=== PATIENT | male | born 1990 | race Hispanic/Latino ===

== ENCOUNTER 2024-08-24 23:53 | Inpatient (IN) | payer SELFPAY ==
[~2024-08-24] VITALS: Ht 175.3 cm; Wt 79.6 kg
[2024-08-25] VITALS (7 sets, daily range): BP systolic 122–150; BP diastolic 65–92; PULSE 69–80; RESP 15–20; TEMP 97.6–98.4; O2SAT 96–98
[2024-08-25 00:42] LABS: APPEARANCE,URINE CLOUDY (CLEAR); BILIRUBIN,URINE NEGATIVE (NEGATIVE); COLOR,URINE YELLOW (YELLOW); GLUCOSE, URINE (UA) NEGATIVE (NEGATIVE); KETONES,URINE NEGATIVE (NEGATIVE); LEUKOCYTE ESTERASE ,URINE NEGATIVE Leu/uL (NEGATIVE); NITRATE,URINE NEGATIVE (NEGATIVE); OCCULT BLOOD,URINE MODERATE (NEGATIVE); PH,URINE 6.5 (5.0-8.0); PROTEIN,URINE 600 mg/dL (NEGATIVE); UROBILINOGEN,URINE 0.2 mg/dL (0.2-1.0)
[2024-08-25 00:44] LABS: ADD UA MICROSCOPIC YES
[2024-08-25 00:46] LABS: BACTERIA,URINE FEW /HPF (None Seen); MUCUS,URINE RARE LPF (None Seen)
[2024-08-25 00:57] LABS: BASOPHILS # (AUTO) 0.09 K/uL (0.00-0.20); EOSINOPHILS # (AUTO) 0.35 K/uL (0.00-0.70); EOSINOPHILS % (AUTO) 3.7 % (0.0-8.0); HEMATOCRIT 41.1 % (42-54); IMMATURE GRANULOCYTE ABSOLUTE 0.04 K/uL (0-1); LYMPHOCYTES # (AUTO) 2.3 K/uL (1.0-4.8); LYMPHOCYTES % (AUTO) 24.8 % (21.0-51.0); MEAN CORPUSCULAR HEMOGLOBIN 30.7 pg (27.0-33.0); MEAN CORPUSCULAR HGB CONC 36.3 g/dL (32.0-36.0); MEAN CORPUSCULAR VOLUME 84.6 fL (79-99); MONOCYTES # (AUTO) 0.7 K/uL (0.1-1.0); MONOCYTES % (AUTO) 7.9 % (3.0-13.0); NEUTROPHILS # (AUTO) 5.8 K/uL (1.8-7.7); NEUTROPHILS % (AUTO) 62.2 % (40.0-77.0); PLATELET COUNT (AUTO) 305 K/uL (130-400); RED BLOOD CELL COUNT(AUTO) 4.86 MIL/uL (4.50-6.20); RED CELL DISTRIBUTION WIDTH 12.1 % (11.0-15.5); WHITE BLOOD COUNT (AUTO) 9.4 K/uL (4.8-10.8)
[2024-08-25 01:06] LABS: INR <= 0.93 (0.85-1.15); PROTHROMBIN TIME 9.9 SEC (9.6-11.6)
[2024-08-25 01:07] LABS: PARTIAL THROMBOPLASTIN TIME 26.3 SEC (26.3-35.5)
[2024-08-25 01:08] LABS: CARBON DIOXIDE 33 mmol/L (21-32); CHLORIDE 108 mmol/L (101-111); CREATININE 1.1 mg/dL (0.5-1.3); GLOMERULAR FILTR. RATE CALC 90 mL/min (>90); GLUCOSE,RANDOM 97 mg/dL (70-105); POTASSIUM 3.7 mmol/L (3.5-5.1); SODIUM SERUM 142 mmol/L (136-145); UREA NITROGEN, BLOOD 19 mg/dL (7-18)
[2024-08-25 01:18] LABS: ALANINE AMINOTRANSFERASE 27 U/L (12-78); ALBUMIN 1.6 g/dL (3.5-5.0); ASPARTATE AMINOTRANSFERASE 22 U/L (10-37); BILIRUBIN,DIRECT 0.1 mg/dL (0.0-0.3); BILIRUBIN,TOTAL 0.2 mg/dL (0.2-1.0); CREATINE KINASE, TOTAL 299 U/L (21-232); TOTAL PROTEIN, SERUM 4.3 g/dL (6.0-8.3)
--- NOTE | 2024-08-25 01:34 | ERN ---
General Chief Complaint: Lower Extremity Pain/Injury Stated Complaint: SWELLING TO BILATERAL LEGS AND WAIST Time Seen by MD: 23:55 History of Present Illness Initial Comments 34-year-old male who presents for swelling for the last 2-3 weeks. He reports pedal edema pitting but has been rising. It is now up to his testicles and abdomen. He does report some dyspnea while lying flat and exertion. No chest pain. No skin color changes. He denies any liver injury. He does report some chronic back pain but no flank pain. No reported medical or surgical history. Allergies: Coded Allergies: No Known Allergies (Unverified Allergy, Unknown, 08/24/24) Past Medical History Past Medical History: No Pertinent History Past Surgical History: None ROS Dictation CONSTITUTIONAL: No chills, no fever, no weakness, no diaphoresis, no malaise. HEAD/FACE: Edema. EENT: No eye pain, no blurred vision, no tearing, no double vision, no ear pain, no ear discharge, no nose pain, no nasal congestion, no throat pain, no throat swelling, no mouth pain. RESPIRATORY: No cough, no orthopnea, no SOB, no stridor, no wheezing. CARDIOVASCULAR: No chest pain, no edema, no palpitations, no syncope. GASTROINTESTINAL/ABDOMINAL: Edema GENITOURINARY: No abnormal discharge, no dysuria, no frequent urination, no hematuria. No complaints of pain in the genitals. MUSCULOSKELETAL: Edema INTEGUMENTARY: No change in color, no change in hair/nails, no dryness, no lesion, no lumps, no rash. NEUROLOGICAL/PSYCH: No anxiety, not depressed, no emotional problem, no headache, no numbness, no pre-existing deficit, no history of seizures, no tremors, no weakness. HEMATOLOGIC/LYMPHATIC: Not anemic, no history of blood clots, no apparent bleeding, no bruising, glands not swollen. All Systems Negative, Except as Noted. Physical Exam Physical Exam Dictation VITAL SIGNS: Reviewed. GENERAL APPEARANCE: Alert, oriented x3, no acute distress. HEAD AND FACE: Non-traumatic. EYES: PERRL, pink conjunctivas, eyelid no trauma, anterior chamber clear. EARS: Pinnas intact and no signs of trauma or erythema. Ear canals clear and no discharge. TMs no erythema. NOSE: No discharge, no bleeding. OROPHARYNX: Mouth normal, teeth no caries, tongue pink. Pharynx clear, no erythema. Tonsils no exudates, no abscesses noted. Mucous membrane moist. NECK: Supple, non-tender, no thyromegaly, no masses, no JVD, no bruits. BREAST: Deferred. CHEST: No tenderness, no crepitus, no paradoxical movement, no retractions. LUNGS: Clear, well-ventilated, symmetric, no rales, no wheezing, no rhonchi, no stridor, good breath sounds bilaterally. HEART: Regular rate, regular rhythm, no murmur, no gallops. VASCULAR: No peripheral edema. ABDOMEN: Soft, positive bowel sounds, nondistended, no guarding, nontender, no rebound, no masses no hepatomegaly, no splenomegaly, no Arnold's sign, no hernias. RECTAL: Deferred. GENITAL: Deferred. NEUROLOGICAL: Normal speech, gross motor function intact, gross sensory function intact. MUSCULOSKELETAL: N pitting edema to the legs up to the groin and abdomen EXTREMITIES: Nontender, full range of motion. SKIN: Color pink, dry, no turgor, no rash, no lacerations, no abrasions, no contusions. LYMPHATICS: Deferred. Results Laboratory and Microbiology Lab and Micro Result Laboratory Tests Test 08/25/24 00:24 08/25/24 00:45 Urine Color YELLOW (YELLOW) Urine Appearance CLOUDY (CLEAR) H Urine pH 6.5 (5.0-8.0) Urine Specific [place] 1.028 (1.001-1.031) Urine Protein 600 mg/dL (NEGATIVE) H Urine Glucose (UA) NEGATIVE mg/dL (NEGATIVE) Urine Ketones NEGATIVE mg/dL (NEGATIVE) Urine Occult Blood MODERATE (NEGATIVE) H Urine Nitrate NEGATIVE (NEGATIVE) Urine Bilirubin NEGATIVE mg/dL (NEGATIVE) Urine Urobilinogen 0.2 mg/dL (0.2-1.0) Urine Leukocyte Esterase NEGATIVE Gordon/uL Urine RBC 6-10 /HPF (0-1) H Urine WBC 6-10 /HPF (0-1) H Urine Bacteria FEW /HPF (None Seen) White Blood Count 9.4 K/uL (4.8-10.8) Red Blood Count 4.86 MIL/uL (4.50-6.20) Hemoglobin 14.9 g/dL (14.0-18.0) Hematocrit 41.1 % (42-54) L Mean Corpuscular Volume 84.6 fL (79-99) Mean Corpuscular Hemoglobin 30.7 pg (27.0-33.0) Mean Corpuscular Hemoglobin Concent 36.3 g/dL (32.0-36.0) H Red Cell Distribution Width 12.1 % (11.0-15.5) Platelet Count 305 K/uL (130-400) Mean Platelet Volume 9.3 fL (7.5-10.5) Immature Granulocyte % (Auto) 0.4 % (0-1) Neutrophils (%) (Auto) 62.2 % (40.0-77.0) Lymphocytes (%) (Auto) 24.8 % (21.0-51.0) Monocytes (%) (Auto) 7.9 % (3.0-13.0) Eosinophils (%) (Auto) 3.7 % (0.0-8.0) Basophils (%) (Auto) 1.0 % (0.0-5.0) Neutrophils # (Auto) 5.8 K/uL (1.8-7.7) Lymphocytes # (Auto) 2.3 K/uL (1.0-4.8) Monocytes # (Auto) 0.7 K/uL (0.1-1.0) Eosinophils # (Auto) 0.35 K/uL (0.00-0.70) Basophils # (Auto) 0.09 K/uL (0.00-0.20) Absolute Immature Granulocyte (auto 0.04 K/uL (0-1) Nucleated Red Blood Cells 0.0 % (0.0-0.19) Red Blood Cell Morphology See comments Prothrombin Time 9.9 SEC (9.6-11.6) Prothromb Time International Ratio <= 0.93 (0.85-1.15) Activated Partial Thromboplast Time 26.3 SEC (26.3-35.5) Sodium Level 142 mmol/L (136-145) Potassium Level 3.7 mmol/L (3.5-5.1) Chloride Level 108 mmol/L (101-111) Carbon Dioxide Level 33 mmol/L (21-32) H Blood Urea Nitrogen 19 mg/dL (7-18) H Creatinine 1.1 mg/dL (0.5-1.3) Glomerular Filtration Rate Calc 90 mL/min (>90) Random Glucose 97 mg/dL (70-105) Total Calcium 7.5 mg/dL (8.5-10.1) L Total Bilirubin 0.2 mg/dL (0.2-1.0) Direct Bilirubin 0.1 mg/dL (0.0-0.3) Aspartate Amino Transf (AST/SGOT) 22 U/L (10-37) Alanine Aminotransferase (ALT/SGPT) 27 U/L (12-78) Alkaline Phosphatase 70 U/L (50-136) Total Creatine Kinase 299 U/L (21-232) H Troponin I High Sensitivity 7.0 ng/L (4-75) C-Reactive Protein, Quantitative < 0.50 mg/L (0.5-3.0) L HP-Osr-J-Type Natriuretic Peptide 21 pg/mL (0-125) Total Protein 4.3 g/dL (6.0-8.3) L Albumin 1.6 g/dL (3.5-5.0) L MDM CC: Edema, anasarca, facial swelling increasing over the last 2-3 weeks Historian: Patient Comorbidities: None Limitations by social determinants of health: Uninsured Differential diagnosis: Nephrotic syndrome, heart failure, liver failure, other. Vital signs show mild hypertension 154/98 otherwise unremarkable. Remained stable in the ER Labs (independently ordered and interpreted by me): normal CBC normal coags. Chemistry shows stable electrolytes carbon dioxide 33 BUN of 19 creatinine 1.1. He has a low protein low albumin. Urinalysis shows protein. Chest x-ray (independently interpreted by me): No cardiomegaly pleural effusions or focal infiltrates Treatment in ED: IV Lasix, albumin 25% IV. Clinical presentation with edema, hypoalbuminemia, total low protein, proteinuria and elevated blood pressure I have block high suspicion for nephrotic syndrome. Patient has no follow up as an outpatient, so we will admit to the hospitalist for further treatment and evaluation. Patient is agreeable. Consultation: Hospitalist for admission. ED Course Orders Procedure Category Date Status Time Cardiac Panel LAB 08/25/24 Complete 00:03 Cbc With Differential LAB 08/25/24 In Process 00:03 Basic Metabolic Panel LAB 08/25/24 Complete 00:03 D-Dimer LAB 08/25/24 In Process 00:03 Prothrombin Time With LAB 08/25/24 In Process INR 00:03 Partial LAB 08/25/24 In Process Thromboplastin Time 00:03 Urinalysis Profile LAB 08/25/24 Complete 00:03 Chest 1vw RAD 08/25/24 Taken 00:03 Hepatic Function Panel LAB 08/25/24 Complete 00:03 Crp Quantitative LAB 08/25/24 Complete 00:03 Erythrocyte LAB 08/25/24 In Process Sedimentation Rate 00:03 Probnp LAB 08/25/24 Complete 00:45 Culture Urine ROBERTO CARLOS 08/25/24 In Process 01:00 Us Renal Sonogram US 08/25/24 Logged 01:24 Albumin Human 25% PHA 08/25/24 Verified (Albutein) 01:30 Furosemide 40mg Vial PHA 08/25/24 Verified (Lasix 40mg Vial) 01:30 Vital Signs Date Time Temp Pulse Resp B/P (MAP) Pulse Ox O2 Delivery O2 Flow Rate FiO2 08/25/24 01:04 78 18 132/87 99 Room Air* 0 21 08/24/24 23:54 98.6 87 20 154/98 98 Room Air DX & DISP Disposition: Inpatient (Hospitalist) Departure Impression: Primary Impression: Nephrotic syndrome Additional Impressions: Hypoalbuminemia, Hypertension, Anasarca Condition: Stable Referrals: SELF,REFERRAL (PCP) KYLIE SANDERS DO Aug 25, 2024 01:34
[2024-08-25 01:44] LABS: D-DIMER 218 ng/mL (0-500)
[2024-08-25] MEDS: ALBUMIN HUMAN 25% 100 ML IV SCH (01:47)
[2024-08-25] MEDS: furoSEMIDE 40MG VIAL IV ONE (01:48)
--- NOTE | 2024-08-25 01:58 | HP ---
[facility] HISTORY AND PHYSICAL Date of Service: Aug 25, 2024 Time of Service: 01:58 PCP: None Attending/supervising physician: Dr. Otoole and Dr. Ross HISTORY OF PRESENT ILLNESS: Mr. Alvarado 34-year-old male with no known medical history and no surgical history who presented to [facility] ED for evaluation of swelling for the last 2-3 weeks. He reported the pedal edema has been rising up to his and abdomen. He does report some dyspnea while lying flat and on exertion. Patient denied chest pain, skin color change, any liver injury. He does report some chronic back pain but no flank pain. Patient reports that now the lower back pain shoots down to his testicles, but denies testicular edema. Labs: BNP , troponin 7.02, D-dimer 218 Remarkable lab results: Hematocrit 41.1, bicarbonate 33, BUN 19, GFR 90, total calcium 7.5, CK 299, C-reactive protein 0.50, total protein 4.3, albumin 1.6. UA: Cloudy, positive protein, moderate blood. Negative nitrites and leukocytes. Pending renal sonogram. In ED the patient received Lasix 40 mg IV x1 dose and albumin. ED physician request patient be admitted with the diagnosis of nephrotic syndrome, hypoalbuminemia, hypertension, and anasarca. I assessed the patient at bedside in ED 16. Significant other was at bedside. Patient's breathing was even, unlabored, in no distress, has generalized edema from lower extremities to upper abdomen. Significant other at bedside reports that the patient never goes to the doctor therefore has unknown history. I informed them of labs, diagnostics, and plan of care. They verbalized understanding and are in agreement with the plan. Plan and assessment are listed below. REVIEW OF SYSTEMS 12-point ROS reviewed with the patient. All pertinent positives mentioned above. Otherwise negative, noncontributory, non-pertinent. PAST MEDICAL HISTORY: Denied any known history PAST SURGICAL HISTORY: None PAST SOCIAL HISTORY: Denies alcohol, tobacco, illicit drug use FAMILY HISTORY: Noncontributory Coded Allergies: No Known Allergies (Unverified Allergy, Unknown, 08/24/24) PHYSICAL EXAM GENERAL APPEARANCE: The patient is awake, alert, and oriented, in no acute cardiopulmonary distress. NEUROLOGICAL: Cranial nerves II-XII grossly intact. Motor is 5/5 in bilateral upper and lower extremities proximal to distal. No sensory deficits. HEENT: Face is symmetric. Pupils are equal and reactive. Extraocular movements are intact. NECK: Supple. No JVD. No thyromegaly. No submental, submandibular, pre- /postauricular, occipital or supraclavicular lymphadenopathy. CHEST: Normal chest expansion. No Telemetry. LUNGS: Absence of any rales, rhonchi or any wheezing. CARDIOVASCULAR: Regular. S1 and S2 normal. No appreciable rubs, murmurs or gallops. ABDOMEN: Nondistended, generalized edema. There is no rebound, voluntary guarding, or rigidity. : Deferred. No Guerra. EXTREMITIES: Generalized edema and not cyanotic. No clubbing. Good capillary refill. SKIN: No skin breakdown. Vital Sign (Last 24 Hours) 08/24/24 08/25/24 23:54 01:04 Temp 98.6 Pulse 78 Resp 18 B/P (MAP) 132/87 Pulse Ox 99 O2 Delivery Room Air* O2 Flow Rate 0 FiO2 21 LABS: Laboratory: Test 08/25/24 00:45 08/25/24 00:24 Range/Units White Blood Count 9.4 4.8-10.8 K/uL Red Blood Count 4.86 4.50-6.20 MIL/uL Hemoglobin 14.9 14.0-18.0 g/dL Hematocrit 41.1 L 42-54 % Mean Corpuscular Volume 84.6 79-99 fL Mean Corpuscular Hemoglobin 30.7 27.0-33.0 pg Mean Corpuscular Hemoglobin Concent 36.3 H 32.0-36.0 g/dL Red Cell Distribution Width 12.1 11.0-15.5 % Platelet Count 305 130-400 K/uL Mean Platelet Volume 9.3 7.5-10.5 fL Immature Granulocyte % (Auto) 0.4 0-1 % Neutrophils (%) (Auto) 62.2 40.0-77.0 % Lymphocytes (%) (Auto) 24.8 21.0-51.0 % Monocytes (%) (Auto) 7.9 3.0-13.0 % Eosinophils (%) (Auto) 3.7 0.0-8.0 % Basophils (%) (Auto) 1.0 0.0-5.0 % Neutrophils # (Auto) 5.8 1.8-7.7 K/uL Lymphocytes # (Auto) 2.3 1.0-4.8 K/uL Monocytes # (Auto) 0.7 0.1-1.0 K/uL Eosinophils # (Auto) 0.35 0.00-0.70 K/uL Basophils # (Auto) 0.09 0.00-0.20 K/uL Absolute Immature Granulocyte (auto 0.04 0-1 K/uL Nucleated Red Blood Cells 0.0 0.0-0.19 % Red Blood Cell Morphology See comments Prothrombin Time 9.9 9.6-11.6 SEC Prothromb Time International Ratio <= 0.93 0.85-1.15 Activated Partial Thromboplast Time 26.3 26.3-35.5 SEC D-Dimer Quantitative (PE/DVT) 218 0-500 ng/mL Sodium Level 142 136-145 mmol/L Potassium Level 3.7 3.5-5.1 mmol/L Chloride Level 108 101-111 mmol/L Carbon Dioxide Level 33 H 21-32 mmol/L Blood Urea Nitrogen 19 H 7-18 mg/dL Creatinine 1.1 0.5-1.3 mg/dL Glomerular Filtration Rate Calc 90 >90 mL/min Random Glucose 97 70-105 mg/dL Total Calcium 7.5 L 8.5-10.1 mg/dL Total Bilirubin 0.2 0.2-1.0 mg/dL Direct Bilirubin 0.1 0.0-0.3 mg/dL Aspartate Amino Transf (AST/SGOT) 22 10-37 U/L Alanine Aminotransferase (ALT/SGPT) 27 12-78 U/L Alkaline Phosphatase 70 50-136 U/L Total Creatine Kinase 299 H 21-232 U/L Troponin I High Sensitivity 7.0 4-75 ng/L C-Reactive Protein, Quantitative < 0.50 L 0.5-3.0 mg/L DB-Ody-L-Type Natriuretic Peptide 21 0-125 pg/mL Total Protein 4.3 L 6.0-8.3 g/dL Albumin 1.6 L 3.5-5.0 g/dL Urine Color YELLOW YELLOW Urine Appearance CLOUDY H CLEAR Urine pH 6.5 5.0-8.0 Urine Specific [place] 1.028 1.001-1.031 Urine Protein 600 H NEGATIVE mg/dL Urine Glucose (UA) NEGATIVE NEGATIVE mg/dL Urine Ketones NEGATIVE NEGATIVE mg/dL Urine Occult Blood MODERATE H NEGATIVE Urine Nitrate NEGATIVE NEGATIVE Urine Bilirubin NEGATIVE NEGATIVE mg/dL Urine Urobilinogen 0.2 0.2-1.0 mg/dL Urine Leukocyte Esterase NEGATIVE NEGATIVE Gordon/uL Urine RBC 6-10 H 0-1 /HPF Urine WBC 6-10 H 0-1 /HPF Urine Bacteria FEW None Seen /HPF Current Medications Medications (Trade) Dose Ordered Sig/Kevin Route PRN Reason Start Time Stop Time Status Last Admin Dose Admin Albumin Human 100 ml @ 0 mls/hr AD IV 08/25/24 01:30 09/24/24 01:29 08/25/24 01:47 200 MLS/HR DIAGNOSTICS / RADIOLOGY: [ ] ASSESSMENT: Nephrotic syndrome, POA Anasarca, POA Acute kidney injury, GFR 90/elevated BUN, POA Hematuria, moderate, POA, per urinalysis Rhabdomyolysis/ dehydration/ elevated total CK, POA Protein calorie malnutrition/hypoalbuminemia, POA Hypoproteinemia/ hyperproteinuria Elevated ESR Elevated carbon dioxide Anemia Hypertension PLAN: -Admit to medical floor with continuous telemetry monitoring. -Lasix 40 mg and Albumin X1 dose administered in ED. -Nephrology consult in the am. -Keep the patient in a euvolemic state. Correct electrolytes accordingly. Avoid Nephrotoxic medications. Adjust medications according to renal function. -Pending sono results. -Obtain CT abd/ pelvis without contrast. -PRN medications for pain management, fever, N/V, constipation, hypertension. -Oxygen supplement as needed to maintain oxygen levels equal to or greater than 92% -Strict I&O. -Daily weight. -Blood pressure checks every 4 hours and as needed. -Reconcile home medications once available. -Glucometer checks before meals and at bedtime with insulin regular sliding scale. - Monitor renal and liver function. -Monitor electrolytes and treat accordingly PRN -AM labs. -GI and DVT prophylaxis -Further plan/orders per hospitalization course. ADVANCED CARE PLANNING 1. Which of the following were discussed? Hospice Care - No Therapeutic options - Yes Advance Directives - Yes Other discussions - 2. Discussed with who? The patient 3. Voluntary nature of this service was explained to the patient? Yes 4. Amount of time spent - ___Over 40 minutes____ 5. Reviewed by Physician? (if this service was performed by LAURA) Yes ATTESTATION BY PHYSICIAN I have seen and examined the patient. I reviewed the documentation, medical decision making, and treatment plan as noted by the mid-level provider above. I agree with the findings and plan of care. COLLEEN ALTMAN [facility] Aug 25, 2024 01:58
[2024-08-25 02:13] LABS: ERYTHROCYTE SEDIMENTATION RATE 18 MM/HR (0-15)
[2024-08-25] MEDS ORDERED: doCUSate SODIUM 100 MG CAP PO PRN ×2 (02:30→14:00)
[2024-08-25] MEDS ORDERED: TEMAZepam 15 MG CAPSULE PO PRN (02:30)
[2024-08-25] MEDS ORDERED: ondanSETRON 4MG INJ IVP PRN (02:30)
[2024-08-25] MEDS ORDERED: acetaMINOPHEN 650 MG SUPPOSITORY RC PRN (02:30)
[2024-08-25] MEDS ORDERED: LACTULOSE 20 GM/30 ML UDCUP PO PRN (02:30)
[2024-08-25] MEDS ORDERED: LAbetaLOL 20MG SYG IV PRN (02:30)
[2024-08-25] MEDS ORDERED: acetaMINOPHEN 325 MG TAB PO PRN (02:30)
--- NOTE | 2024-08-25 05:31 | NUR ---
as per RN, SHE WILL CHECK IF AID IS AVAILABLE TO BRING PT DOWN FOR CT EXAM
--- NOTE | 2024-08-25 05:35 | NUR ---
CALL RECEIVED, PER RN: AIDE WILL BRING PT FOR CT EXAM AROUND 6AM
--- NOTE | 2024-08-25 08:45 | HMCIMG ---
CT ABDOMEN/PELVIS W/O CONTRAST HISTORY: Abdominal distention COMPARISON: None TECHNIQUE: Multiple sequential axial images of the abdomen and pelvis were obtained from the dome of the diaphragm through symphysis pubis. Patient was not given contrast through intravenous route. Oral contrast was not given. FINDINGS: No pleural effusion is seen bilaterally. There is no evidence of parenchymal disease or pulmonary nodule of the visualized lower lungs. Degenerative changes of the thoracolumbar spine are present. The heart is not enlarged. Liver measures 17 cm. The liver, spleen, adrenal glands and pancreas are unremarkable. There is no evidence of hydronephrosis bilaterally. No evidence of renal stone is seen. Fecal material is seen in the colon. There are normal size retroperitoneal and mesenteric lymph nodes. No ascites is seen. No CT evidence of acute appendicitis is seen. Pelvic sidewalls are symmetric bilaterally. Bladder is poorly distended. If there is clinical suspicion for testicular pathology, ultrasound evaluation with helpful. IMPRESSION: 1. Large amount of fecal material is seen in the colon. No ascites is seen. CT was performed with one or more following dose reduction techniques: automated exposure control, adjustment of the mA and kv according to patient's size, or use of a iterative reconstruction technique.
--- NOTE | 2024-08-25 09:09 | HMCIMG ---
US RENAL SONOGRAM HISTORY: Nephrotic syndrome COMPARISON: None TECHNIQUE: Renal and bladder ultrasound study was performed. FINDINGS: The right kidney measures 11 x 6 x 7 cm. The left kidney measures 12 x 6 x 5 cm. No evidence of hydronephrosis is seen of either kidney. Both kidneys are seen. Bladder is moderately distended. Bladder volume is 265 cc. IMPRESSION: 1. No hydronephrosis is seen.
--- NOTE | 2024-08-25 09:11 | HMCIMG ---
CHEST 1VW HISTORY: Swelling COMPARISON: None FINDINGS: A frontal projection of the chest was obtained. Mild bilateral pulmonary infiltrates are seen may be related to mild pulmonary vascular congestion with possible superimposed pneumonitis. The heart is normal in size. Mild degenerative changes are seen. Aortic calcifications are seen. IMPRESSION: 1. Mild bilateral pulmonary infiltrates are seen may be related to mild pulmonary vascular congestion with possible superimposed pneumonitis.
[2024-08-25] MEDS: FAMOTIDINE 20MG TAB PO SCH (09:43)
[2024-08-25] MEDS: ENOXAPARIN SODIUM 40 MG/0.4 ML SYRINGE SQ SCH (09:44)
--- NOTE | 2024-08-25 13:38 | PN ---
[facility] PROGRESS NOTE Date of Service: Aug 25, 2024 Time of Service: 13:06 SUBJECTIVE: The patient is a 34-year-old male with no known medical history and no surgical history who presented [place] [facility] [place] for the evaluation of swelling for the last 2-3 weeks. He reported the pedal edema has been rising up to his and abdomen and dyspnea with exertion. He also reported some chronic back pain shoots down to his testicles but no flank pain. The patient indicates that he suffers from chronic proteinuria and has been informed on numerous occasions in the past, following urine drug screenings conducted as part of his occupational medical assessment. He has never been advised to consult a director online marketing. Additionally, the patient does not have a designated primary care provider. Labs: NT-Pro BNP 21, troponin 7.02, D-dimer 218 Remarkable lab results: Hematocrit 41.1, CO2 33, BUN 19, GFR 90, total calcium 7.5, CK 299, C-reactive protein 0.50, total protein 4.3, albumin 1.6. UA: Cloudy, positive protein, moderate blood. Negative nitrites and leukocytes. He received Lasix 40 mg IV and albumin and admitted for the further management of anasarca, nephrotic syndrome. 08/25/24: The patient was assessed at the bedside today. He reports in improvement of shortness of breath and swelling after receiving IV Lasix yesterday. He denies having any complaints or concerns at this time and is hemodynamically stable. Radiology investigations: The chest x-ray appears unremarkable, while the abdomen and pelvis CT revealed a significant amount of fecal material in the colon, with no signs of ascites. The renal ultrasound showed no evidence of hydronephrosis. We will obtain protein/creatinine ratio, hepatitis B,C panel, complement levels and AVEL W/reflex as a part of Nephrotic syndrome follow up. Nephrology consult is pending, we will follow up with the recommendations once available. Further assessment and plan discussed below. REVIEW OF SYSTEMS 12-point ROS reviewed with the patient. All pertinent positives mentioned above. Otherwise negative, noncontributory, non-pertinent. PHYSICAL EXAM GENERAL APPEARANCE: The patient is awake, alert, and oriented, in no acute cardiopulmonary distress. NEUROLOGICAL: Cranial nerves II-XII grossly intact. Motor is 5/5 in bilateral upper and lower extremities proximal to distal. No sensory deficits. HEENT: Face is symmetric. Pupils are equal and reactive. Extraocular movements are intact. NECK: Supple. No JVD. No thyromegaly. No submental, submandibular, pre- /postauricular, occipital or supraclavicular lymphadenopathy. CHEST: Normal chest expansion. No Telemetry. LUNGS: Absence of any rales, rhonchi or any wheezing. CARDIOVASCULAR: Regular. S1 and S2 normal. No appreciable rubs, murmurs or gallops. ABDOMEN: Nondistended, generalized edema. There is no rebound, voluntary guarding, or rigidity. : Deferred. No Guerra. EXTREMITIES: Generalized edema and not cyanotic. No clubbing. Good capillary refill. SKIN: No skin breakdown. Vital Signs (last 8hr) Date Time Temp Pulse Resp B/P (MAP) Pulse Ox O2 Delivery O2 Flow Rate FiO2 08/25/24 12:00 97.9 75 16 122/65 97 Room Air 08/25/24 08:00 97.9 73 15 122/72 96 Room Air LABS: Laboratory: Test 08/25/24 00:45 08/25/24 00:24 Range/Units White Blood Count 9.4 4.8-10.8 K/uL Red Blood Count 4.86 4.50-6.20 MIL/uL Hemoglobin 14.9 14.0-18.0 g/dL Hematocrit 41.1 L 42-54 % Mean Corpuscular Volume 84.6 79-99 fL Mean Corpuscular Hemoglobin 30.7 27.0-33.0 pg Mean Corpuscular Hemoglobin Concent 36.3 H 32.0-36.0 g/dL Red Cell Distribution Width 12.1 11.0-15.5 % Platelet Count 305 130-400 K/uL Mean Platelet Volume 9.3 7.5-10.5 fL Immature Granulocyte % (Auto) 0.4 0-1 % Neutrophils (%) (Auto) 62.2 40.0-77.0 % Lymphocytes (%) (Auto) 24.8 21.0-51.0 % Monocytes (%) (Auto) 7.9 3.0-13.0 % Eosinophils (%) (Auto) 3.7 0.0-8.0 % Basophils (%) (Auto) 1.0 0.0-5.0 % Neutrophils # (Auto) 5.8 1.8-7.7 K/uL Lymphocytes # (Auto) 2.3 1.0-4.8 K/uL Monocytes # (Auto) 0.7 0.1-1.0 K/uL Eosinophils # (Auto) 0.35 0.00-0.70 K/uL Basophils # (Auto) 0.09 0.00-0.20 K/uL Absolute Immature Granulocyte (auto 0.04 0-1 K/uL Nucleated Red Blood Cells 0.0 0.0-0.19 % Red Blood Cell Morphology See comments Erythrocyte Sedimentation Rate 18 H 0-15 MM/HR Prothrombin Time 9.9 9.6-11.6 SEC Prothromb Time International Ratio <= 0.93 0.85-1.15 Activated Partial Thromboplast Time 26.3 26.3-35.5 SEC D-Dimer Quantitative (PE/DVT) 218 0-500 ng/mL Sodium Level 142 136-145 mmol/L Potassium Level 3.7 3.5-5.1 mmol/L Chloride Level 108 101-111 mmol/L Carbon Dioxide Level 33 H 21-32 mmol/L Blood Urea Nitrogen 19 H 7-18 mg/dL Creatinine 1.1 0.5-1.3 mg/dL Glomerular Filtration Rate Calc 90 >90 mL/min Random Glucose 97 70-105 mg/dL Total Calcium 7.5 L 8.5-10.1 mg/dL Total Bilirubin 0.2 0.2-1.0 mg/dL Direct Bilirubin 0.1 0.0-0.3 mg/dL Aspartate Amino Transf (AST/SGOT) 22 10-37 U/L Alanine Aminotransferase (ALT/SGPT) 27 12-78 U/L Alkaline Phosphatase 70 50-136 U/L Total Creatine Kinase 299 H 21-232 U/L Troponin I High Sensitivity 7.0 4-75 ng/L C-Reactive Protein, Quantitative < 0.50 L 0.5-3.0 mg/L SL-Wfo-O-Type Natriuretic Peptide 21 0-125 pg/mL Total Protein 4.3 L 6.0-8.3 g/dL Albumin 1.6 L 3.5-5.0 g/dL Urine Color YELLOW YELLOW Urine Appearance CLOUDY H CLEAR Urine pH 6.5 5.0-8.0 Urine Specific [place] 1.028 1.001-1.031 Urine Protein 600 H NEGATIVE mg/dL Urine Glucose (UA) NEGATIVE NEGATIVE mg/dL Urine Ketones NEGATIVE NEGATIVE mg/dL Urine Occult Blood MODERATE H NEGATIVE Urine Nitrate NEGATIVE NEGATIVE Urine Bilirubin NEGATIVE NEGATIVE mg/dL Urine Urobilinogen 0.2 0.2-1.0 mg/dL Urine Leukocyte Esterase NEGATIVE NEGATIVE Gordon/uL Urine RBC 6-10 H 0-1 /HPF Urine WBC 6-10 H 0-1 /HPF Urine Bacteria FEW None Seen /HPF Current Medications Medications (Trade) Dose Ordered Sig/Kevin Route PRN Reason Start Time Stop Time Status Last Admin Dose Admin Acetaminophen (TYLenol 325MG TAB) 650 mg Q6H PRN PO FEVER/MILD PAIN LEVEL 1-3 08/25/24 02:30 09/24/24 02:29 Acetaminophen (TYLenol 650MG SUPPOSITORY) 650 mg Q6H PRN RC FEVER / MILD PAIN 1-3 IF NPO 08/25/24 02:30 09/24/24 02:29 Albumin Human 100 ml @ 0 mls/hr AD IV 08/25/24 01:30 08/25/24 07:01 DC 08/25/24 01:47 200 MLS/HR Docusate Sodium (COLace 100MG CAP) 100 mg BID PRN PO CONSTIPATION 08/25/24 02:30 09/24/24 02:29 Enoxaparin Sodium (Lovenox) 40 mg DAILY SQ 08/25/24 09:00 09/24/24 08:59 08/25/24 09:44 40 MG Famotidine (Pepcid 20mg Tab) 20 mg BID PO 08/25/24 09:00 09/24/24 08:59 08/25/24 09:43 20 MG Labetalol HCl (TRANdate 20MG SYG) 10 mg Q2H PRN IV SBP GREATER THAN 160 08/25/24 02:30 09/24/24 02:29 Lactulose (Constulose 20gm/ 30ml Udcup) 20 gm Q6H PRN PO CONSTIPATION 08/25/24 02:30 09/24/24 02:29 Ondansetron HCl (zoFRAN 4MG INJ) 4 mg Q6H PRN IVP NAUSEA/VOMITING 08/25/24 02:30 09/24/24 02:29 Temazepam (restORIL 15 MG CAP) 15 mg HS PRN PO INSOMNIA/SLEEP 08/25/24 02:30 09/24/24 02:29 DIAGNOSTICS / RADIOLOGY: [place] [address] [id number] IMAGING REPORT Signed PATIENT: BRENTON PIERRE MR#: [id number] : 1990 SEX: M AGE: 34 LOCATION: 4[facility] ORDER 0015 STATUS: ADM IN REPORT#: [id number] SERVICE 0003 REASON: swelling ORDERING PHYSICIAN: KYLIE SANDERS DO PROCEDURE: CXR1VW - CHEST 1VW CHEST 1VW HISTORY: Swelling COMPARISON: None FINDINGS: A frontal projection of the chest was obtained. Mild bilateral pulmonary infiltrates are seen may be related to mild pulmonary vascular congestion with possible superimposed pneumonitis. The heart is normal in size. Mild degenerative changes are seen. Aortic calcifications are seen. IMPRESSION: 1. Mild bilateral pulmonary infiltrates are seen may be related to mild pulmonary vascular congestion with possible superimposed pneumonitis. DICTATED BY: VIKAS WOLF MD DATE: 08/25/2407 ELECTRONICALLY SIGNED BY: VIKAS WOLF MD DATE: 08/25/24 0911 [place] [address] [address] IMAGING REPORT Signed PATIENT: BRENTON PIERRE MR#: [id number] : 1990 SEX: M AGE: 34 LOCATION: 4[facility] ORDER 0125 STATUS: ADM IN REPORT#: [id number] SERVICE 0124 REASON: nephrotic syndrome ORDERING PHYSICIAN: KYLIE SANDERS DO PROCEDURE: RENAL - US RENAL SONOGRAM US RENAL SONOGRAM HISTORY: Nephrotic syndrome COMPARISON: None TECHNIQUE: Renal and bladder ultrasound study was performed. FINDINGS: The right kidney measures 11 x 6 x 7 cm. The left kidney measures 12 x 6 x 5 cm. No evidence of hydronephrosis is seen of either kidney. Both kidneys are seen. Bladder is moderately distended. Bladder volume is 265 cc. IMPRESSION: 1. No hydronephrosis is seen. DICTATED BY: VIKAS WOLF MD DATE: 08/25/24904 ELECTRONICALLY SIGNED BY: VIKAS WOLF MD DATE: 08/25/24908 [facility] [address] [place] [id number] IMAGING REPORT Signed PATIENT: BRENTON PIERRE MR#: [id number] : 1990 SEX: M AGE: 34 LOCATION: 4[facility] ORDER 7 STATUS: ADM IN REPORT#: [id number] SERVICE REASON: abd distension, back pain radiates to testicles, hematuria, anasarca, HTN ORDERING PHYSICIAN: COLLEEN [employer]TM[employer] PROCEDURE: ABD PEL WO - CT ABDOMEN/PELVIS W/O CONTRAST CT ABDOMEN/PELVIS W/O CONTRAST HISTORY: Abdominal distention COMPARISON: None TECHNIQUE: Multiple sequential axial images of the abdomen and pelvis were obtained from the dome of the diaphragm through symphysis pubis. Patient was not given contrast through intravenous route. Oral contrast was not given. FINDINGS: No pleural effusion is seen bilaterally. There is no evidence of parenchymal disease or pulmonary nodule of the visualized lower lungs. Degenerative changes of the thoracolumbar spine are present. The heart is not enlarged. Liver measures 17 cm. The liver, spleen, adrenal glands and pancreas are unremarkable. There is no evidence of hydronephrosis bilaterally. No evidence of renal stone is seen. Fecal material is seen in the colon. There are normal size retroperitoneal and mesenteric lymph nodes. No ascites is seen. No CT evidence of acute appendicitis is seen. Pelvic sidewalls are symmetric bilaterally. Bladder is poorly distended. If there is clinical suspicion for testicular pathology, ultrasound evaluation with helpful. IMPRESSION: 1. Large amount of fecal material is seen in the colon. No ascites is seen. CT was performed with one or more following dose reduction techniques: automated exposure control, adjustment of the mA and kv according to patient's size, or use of a iterative reconstruction technique. DICTATED BY: VIKAS WOLF MD DATE: 08/25/24837 ELECTRONICALLY SIGNED BY: VIKAS WOLF MD DATE: 08/25/2466 ASSESSMENT: Nephrotic syndrome, POA Anasarca, POA Acute kidney injury, GFR 90/elevated BUN, POA Hematuria, moderate, POA, per urinalysis Functional Constipation Rhabdomyolysis/ dehydration/ elevated total CK, POA Protein calorie malnutrition/hypoalbuminemia, POA Hypoproteinemia/ hyperproteinuria Elevated ESR Elevated carbon dioxide Anemia PLAN: The patient remains admitted in the medical-surgical floor. Nephrotic syndrome, POA Anasarca, POA Protein calorie malnutrition/hypoalbuminemia, POA Hypoproteinemia/ hyperproteinuria * Abdomen and pelvis CT revealed a significant amount of fecal material in the colon, with no signs of ascites. The renal ultrasound showed no evidence of hydronephrosis. * We will obtain protein/creatinine ratio, hepatitis B,C panel, complement levels and AVEL W/reflex as a part of Nephrotic syndrome follow up. Follow up with the results. * Pending nephrology consult, follow up with the recommendations when available. * Daily weights * Avoid Nephrotoxic medications. * Strict I&O. * Adjust medications according to renal function. Acute kidney injury, GFR 90/elevated BUN, POA * Keep the patient in a euvolemic state. Correct electrolytes accordingly. * Avoid Nephrotoxic medications. Adjust medications according to renal function. * Monitor kidney functions, repeat labs in a.m. Functional Constipation * CT Abdomen/Pelvis on 08/25 showed large amount of fecal material. Start with lactulose 20 g b.i.d. * Continue with Colace 100 mg b.i.d. q.6 as needed. PRN medications for pain management, fever, N/V, constipation, hypertension. Oxygen supplement as needed to maintain oxygen levels equal to or greater than 92% The patient does not take any medications at home. DVT Prophylaxis: Lovenox 40 mg daily GI Prophylaxis: Famotidine 20 mg BID AM Labs: CBC,BMP ATTESTATION BY PHYSICIAN I have seen and examined the patient. I reviewed the documentation, medical decision making, and treatment plan as noted by the resident provider above. I agree with the findings and plan of care. Alexi Otoole MD, MANALI MD Aug 25, 2024 13:38
--- NOTE | 2024-08-25 13:47 | NUR ---
DCP: HOME Pt currently lives with his mom. pt does not have any DME, home health, or provider services. Pt is able to complete ADLs independently. Pt was offered community resources for medical care however pt states "I do go to doctors". At [place] pt will go home and family will assist with transportation. Addendum: 08/25/24 at 1351 by MIKE SAENZ SS Amended: Links added.
--- NOTE | 2024-08-25 14:37 | CONS ---
CONSULTATION NOTE Date of Service: Aug 25, 2024 Reason for Consultation: Abnormal Labs HISTORY OF PRESENT ILLNESS: 43 y/o male with no pertinent medica history, presented to the ED due to edema to BLE and abdominal. Patient stating has been going on for some time. Denies fever chills and pain. Stating no other symptoms, although did say occasionally has had back pains not related to any physical activity. Examined at bedside, family in room. Consulted due to abnormal labs, proteinuria and edema REVIEW OF SYSTEMS CONSTITUTIONAL: Denies fever, chills, or fatigue. HEAD/FACE: No signs of trauma. EENT: Denies eye pain, blurred vision, double vision, or light sensitivity. RESPIRATORY: Denies shortness of breath, cough, wheezing CARDIOVASCULAR: Denies chest pain, palpitation, syncope GASTROINTESTINAL/ABDOMINAL: Denies abdominal pain, constipation, diarrhea, nausea or vomiting GENITOURINARY: Denies dysuria or hematuria. MUSCULOSKELETAL: Denies joint pain, tenderness, or trauma. INTEGUMENTARY: Denies rash or itchiness NEUROLOGICAL/PSYCH: Denies anxiety, depression, heat or cold intolerance. PAST MEDICAL HISTORY: Refer to [facility] Coded Allergies: No Known Allergies (Unverified Allergy, Unknown, 08/24/24) PHYSICAL EXAM EYES: Anicteric. Pupils equal and reactive. HENT: No oral thrush seen, moist Oral mucosa NECK: Supple, no JVD or thyromegaly. LUNGS: Good air entry. No rales, no rhonchi. CARDIOVASCULAR: S1, S2 regular. No murmur heard. ABDOMEN: Soft, non tender, bowel sounds present, no organomegaly CENTRAL NERVOUS SYSTEM: Awake, alert, oriented x 3. No focal deficits. SKIN: No rashes, no swelling. LYMPHATICS: No peripheral lymphadenopathy MUSCULOSKELETAL: No joint swelling, erythema or tenderness. EXTREMITIES: No cyanosis or clubbing BACK: No deformity, no pressure ulcer. GENITOURINARY: No dysuria or hematuria Vital Sign (Last 24 Hours) 08/25/24 08/25/24 04:10 12:00 Temp 97.9 Pulse 75 Resp 16 B/P (MAP) 122/65 Pulse Ox 97 O2 Delivery Room Air O2 Flow Rate 0 FiO2 21 Intake & Output (last 24hrs) 0 08/24/24 08/24/24 08/25/24 15:00 23:00 07:00 Output Total 975 ml Balance -975 ml LABS: Laboratory: Test 08/25/24 00:45 08/25/24 00:24 Range/Units White Blood Count 9.4 4.8-10.8 K/uL Red Blood Count 4.86 4.50-6.20 MIL/uL Hemoglobin 14.9 14.0-18.0 g/dL Hematocrit 41.1 L 42-54 % Mean Corpuscular Volume 84.6 79-99 fL Mean Corpuscular Hemoglobin 30.7 27.0-33.0 pg Mean Corpuscular Hemoglobin Concent 36.3 H 32.0-36.0 g/dL Red Cell Distribution Width 12.1 11.0-15.5 % Platelet Count 305 130-400 K/uL Mean Platelet Volume 9.3 7.5-10.5 fL Immature Granulocyte % (Auto) 0.4 0-1 % Neutrophils (%) (Auto) 62.2 40.0-77.0 % Lymphocytes (%) (Auto) 24.8 21.0-51.0 % Monocytes (%) (Auto) 7.9 3.0-13.0 % Eosinophils (%) (Auto) 3.7 0.0-8.0 % Basophils (%) (Auto) 1.0 0.0-5.0 % Neutrophils # (Auto) 5.8 1.8-7.7 K/uL Lymphocytes # (Auto) 2.3 1.0-4.8 K/uL Monocytes # (Auto) 0.7 0.1-1.0 K/uL Eosinophils # (Auto) 0.35 0.00-0.70 K/uL Basophils # (Auto) 0.09 0.00-0.20 K/uL Absolute Immature Granulocyte (auto 0.04 0-1 K/uL Nucleated Red Blood Cells 0.0 0.0-0.19 % Red Blood Cell Morphology See comments Erythrocyte Sedimentation Rate 18 H 0-15 MM/HR Prothrombin Time 9.9 9.6-11.6 SEC Prothromb Time International Ratio <= 0.93 0.85-1.15 Activated Partial Thromboplast Time 26.3 26.3-35.5 SEC D-Dimer Quantitative (PE/DVT) 218 0-500 ng/mL Sodium Level 142 136-145 mmol/L Potassium Level 3.7 3.5-5.1 mmol/L Chloride Level 108 101-111 mmol/L Carbon Dioxide Level 33 H 21-32 mmol/L Blood Urea Nitrogen 19 H 7-18 mg/dL Creatinine 1.1 0.5-1.3 mg/dL Glomerular Filtration Rate Calc 90 >90 mL/min Random Glucose 97 70-105 mg/dL Total Calcium 7.5 L 8.5-10.1 mg/dL Total Bilirubin 0.2 0.2-1.0 mg/dL Direct Bilirubin 0.1 0.0-0.3 mg/dL Aspartate Amino Transf (AST/SGOT) 22 10-37 U/L Alanine Aminotransferase (ALT/SGPT) 27 12-78 U/L Alkaline Phosphatase 70 50-136 U/L Total Creatine Kinase 299 H 21-232 U/L Troponin I High Sensitivity 7.0 4-75 ng/L C-Reactive Protein, Quantitative < 0.50 L 0.5-3.0 mg/L [id number]-Afe-[id number]-Type Natriuretic Peptide 21 0-125 pg/mL Total Protein 4.3 L 6.0-8.3 g/dL Albumin 1.6 L 3.5-5.0 g/dL Urine Color YELLOW YELLOW Urine Appearance CLOUDY H CLEAR Urine pH 6.5 5.0-8.0 Urine Specific [place] 1.028 1.001-1.031 Urine Protein 600 H NEGATIVE mg/dL Urine Glucose (UA) NEGATIVE NEGATIVE mg/dL Urine Ketones NEGATIVE NEGATIVE mg/dL Urine Occult Blood MODERATE H NEGATIVE Urine Nitrate NEGATIVE NEGATIVE Urine Bilirubin NEGATIVE NEGATIVE mg/dL Urine Urobilinogen 0.2 0.2-1.0 mg/dL Urine Leukocyte Esterase NEGATIVE NEGATIVE Gordon/uL Urine RBC 6-10 H 0-1 /HPF Urine WBC 6-10 H 0-1 /HPF Urine Bacteria FEW None Seen /HPF DIAGNOSTICS / RADIOLOGY: US RENAL SONOGRAM HISTORY: Nephrotic syndrome COMPARISON: None TECHNIQUE: Renal and bladder ultrasound study was performed. FINDINGS: The right kidney measures 11 x 6 x 7 cm. The left kidney measures 12 x 6 x 5 cm. No evidence of hydronephrosis is seen of either kidney. Both kidneys are seen. Bladder is moderately distended. Bladder volume is 265 cc. IMPRESSION: 1. No hydronephrosis is seen. ASSESSMENT: Hypertension Proteinuria Hypoalbuminemia Myoglobinuria Dehydration PLAN: Maintain adequate hydration Free fluid 1.5 L QD Monitor I's and O's Renal friendly diet Avoid Nephrotoxins Monitor Renal function and electrolytes Pending Urine Studies, serologic tests. Elevated ESR KELLEE OCONNOR AGNP Aug 25, 2024 14:37
[2024-08-25] MEDS: LACTULOSE 20 GM/30 ML UDCUP PO SCH (14:59)
[2024-08-25 15:08] LABS: AMPHET/METH SCREEN,URINE NEGATIVE (NEGATIVE); BARBITURATE SCREEN, URINE NEGATIVE (NEGATIVE); BENZODIAZEPINES SCREEN,URINE NEGATIVE (NEGATIVE); CANNABINOID SCREEN,URINE NEGATIVE (NEGATIVE); COCAINE SCREEN,URINE NEGATIVE (NEGATIVE); OPIATE SCREEN,URINE NEGATIVE (NEGATIVE); PHENCYCLIDINE SCREEN,URINE NEGATIVE (NEGATIVE)
[2024-08-26] VITALS: BP 128/73; PULSE 68; RESP 20; TEMP 97.5
[2024-08-26 04:00] VITALS: BP 133/81; PULSE 68; RESP 20; TEMP 97.6
[2024-08-26 04:25] LABS: HEMATOCRIT 39.5 % (42-54); MEAN CORPUSCULAR HEMOGLOBIN 29.5 pg (27.0-33.0); MEAN CORPUSCULAR HGB CONC 34.7 g/dL (32.0-36.0); MEAN CORPUSCULAR VOLUME 85.1 fL (79-99); RED BLOOD CELL COUNT(AUTO) 4.64 MIL/uL (4.50-6.20); WHITE BLOOD COUNT (AUTO) 6.2 K/uL (4.8-10.8)
[2024-08-26 04:59] LABS: CREATININE 1.1 mg/dL (0.5-1.3); MAGNESIUM 1.8 mg/dL (1.80-2.40); POTASSIUM 4.2 mmol/L (3.5-5.1)
[2024-08-26 08:00] VITALS: BP 124/73; PULSE 63; RESP 16; TEMP 97.8; O2SAT 98
[2024-08-26 08:56] LABS: CHOLESTEROL 206 mg/dL (<200); HDL CHOLESTEROL 43 mg/dL (29-71); LDL DIRECT 144 mg/dL (0-99); TRIGLYCERIDES 107 mg/dL (30-200)
[2024-08-26 12:00] VITALS: BP 136/79; PULSE 69; RESP 18; TEMP 98.3
[2024-08-26 15:37] LABS: HEPATITIS B SURFACE ANTIGEN Non-Reactive (Nonreactive)
--- NOTE | 2024-08-26 15:58 | DS ---
Discharge Summary Hospital Course Summary: The patient is a 34-year-old male with no known medical history and no surgical history who presented to [facility] ED on 08/25 for the evaluation of swelling for the last 2-3 weeks. He reported the pedal edema has been rising up to his and abdomen and dyspnea with exertion. He also reported some chronic back pain shoots down to his testicles but no flank pain. The patient indicates that he suffers from chronic proteinuria and has been informed on numerous occasions in the past, following urine drug screenings conducted as part of his occupational medical assessment. He was never been advised to consult a railroad signal and switch operator. Additionally, the patient did not have a designated primary care provider. Labs showed NT-Pro BNP 21, troponin 7.02, D-dimer 218, Hematocrit 41.1, CO2 33, BUN 19, GFR 90, total calcium 7.5, CK 299, C-reactive protein 0.50, total protein 4.3, albumin 1.6. UA showed Cloudy appearance, positive protein, moderate blood. Negative nitrites and leukocytes. He received Lasix 40 mg IV and albumin and admitted for the further management of anasarca, nephrotic syndrome. The patient's edema responded well to a single dose of IV furosemide. Labs showed urine albumin to creatinine ratio of 47 milligram/gram, protein/creatinine ratio 7695, microalbumin level is greater than 1000 mg per day. This finding suggests significant kidney damage that warrants further evaluation and management. We initiated a focused workup for nephrotic syndrome, which included hepatitis serology, complement C3, C4, CH50 levels, and with AVEL reflex testing, with results still pending. According to the railroad signal and switch operator, the patient can continue nephrotic syndrome management as an outpatient, beginning with renal site genetic testing and proceeding to kidney biopsy if indicated in the future. The patient had been informed multiple times previously about the diagnosis but had not followed up with healthcare providers due to insurance issues; he was strongly encouraged this time to consult with the neurologist after discharge. On 08/26, the patient is hemodynamically stable, the swelling has significantly reduced, is denying any complaints or concerns. Serology testing results are currently pending, however management can be done as an outpatient and any positive results can be addressed during follow up care after discharge. He is medically stable and can be discharge follow up as an outpatient. Procedure(s): [address] [place] [id number] [place] REPORT Signed PATIENT: BRENTON PIERRE MR#: [id number] : 1990 SEX: M AGE: 34 LOCATION: 4CH ORDER 0015 STATUS: ADM IN REPORT#: [id number] SERVICE 0003 REASON: swelling ORDERING PHYSICIAN: KYLIE SANDERS DO PROCEDURE: CXR1VW - CHEST 1VW CHEST 1VW HISTORY: Swelling COMPARISON: None FINDINGS: A frontal projection of the chest was obtained. Mild bilateral pulmonary infiltrates are seen may be related to mild pulmonary vascular congestion with possible superimposed pneumonitis. The heart is normal in size. Mild degenerative changes are seen. Aortic calcifications are seen. IMPRESSION: 1. Mild bilateral pulmonary infiltrates are seen may be related to mild pulmonary vascular congestion with possible superimposed pneumonitis. DICTATED BY: VIKAS WOLF MD DATE: 08/25/24906 ELECTRONICALLY SIGNED BY: VIKAS WOLF MD DATE: 08/25/24 0911 [place] [id number] [place] [id number] IMAGING REPORT Signed PATIENT: BRENTON PIERRE MR#: [id number] : 1990 SEX: M AGE: 34 LOCATION: 4CH ORDER 0125 STATUS: ADM IN REPORT#: [id number] SERVICE 0124 REASON: nephrotic syndrome ORDERING PHYSICIAN: KYLIE SANDERS DO PROCEDURE: RENAL - US RENAL SONOGRAM US RENAL SONOGRAM HISTORY: Nephrotic syndrome COMPARISON: None TECHNIQUE: Renal and bladder ultrasound study was performed. FINDINGS: The right kidney measures 11 x 6 x 7 cm. The left kidney measures 12 x 6 x 5 cm. No evidence of hydronephrosis is seen of either kidney. Both kidneys are seen. Bladder is moderately distended. Bladder volume is 265 cc. IMPRESSION: 1. No hydronephrosis is seen. DICTATED BY: VIKAS WOLF MD DATE: 08/25/24 09 ELECTRONICALLY SIGNED BY: VIKAS WOLF MD DATE: 08/25/[address] [facility] [address] [place], [place] [id number] IMAGING REPORT Signed PATIENT: BRENTON PIERRE MR#: [id number] : 1990 SEX: M AGE: 34 LOCATION: 4CH ORDER 7 STATUS: ADM IN REPORT#: [id number] SERVICE 2 REASON: abd distension, back pain radiates to testicles, hematuria, anasarca, HTN ORDERING PHYSICIAN: COLLEEN ALTMAN STRAIGHT RULING MACHINE OPERATOR PROCEDURE: ABD PEL WO - CT ABDOMEN/PELVIS W/O CONTRAST CT ABDOMEN/PELVIS W/O CONTRAST HISTORY: Abdominal distention COMPARISON: None TECHNIQUE: Multiple sequential axial images of the abdomen and pelvis were obtained from the dome of the diaphragm through symphysis pubis. Patient was not given contrast through intravenous route. Oral contrast was not given. FINDINGS: No pleural effusion is seen bilaterally. There is no evidence of parenchymal disease or pulmonary nodule of the visualized lower lungs. Degenerative changes of the thoracolumbar spine are present. The heart is not enlarged. Liver measures 17 cm. The liver, spleen, adrenal glands and pancreas are unremarkable. There is no evidence of hydronephrosis bilaterally. No evidence of renal stone is seen. Fecal material is seen in the colon. There are normal size retroperitoneal and mesenteric lymph nodes. No ascites is seen. No CT evidence of acute appendicitis is seen. Pelvic sidewalls are symmetric bilaterally. Bladder is poorly distended. If there is clinical suspicion for testicular pathology, ultrasound evaluation with helpful. IMPRESSION: 1. Large amount of fecal material is seen in the colon. No ascites is seen. CT was performed with one or more following dose reduction techniques: automated exposure control, adjustment of the mA and kv according to patient's size, or use of a iterative reconstruction technique. DICTATED BY: VIKAS WOLF MD DATE: 08/25/24837 ELECTRONICALLY SIGNED BY: VIKAS WOLF MD DATE: 08/25/2445 [facility] [address] [place], [place] [id number] IMAGING REPORT Signed PATIENT: BRENTON PIERRE MR#: [id number] : 1990 SEX: M AGE: 34 LOCATION: 4C ORDER 1257 STATUS: DIS IN REPORT#: [id number] SERVICE 0823 REASON: Anasarca, Shortness of breath ORDERING PHYSICIAN: VELIA CASTANO MD PROCEDURE: ECHO CMP - ECHO 2-D COMPLETE APPROVED REPORT EXAM: Two-dimensional and M-mode echocardiogram with Doppler and color Doppler. INDICATION ICD: Anasarca, shortness of breath 2D Dimensions RVDd 3.9 cm LVEF(%) 59.5 (>50%) LVED Vol(simp.) 107.0 mL IVSd 1.0 (0.7-1.1cm) FS(%) 32 % LVES Vol(simp.) 40.0 mL LVDd 4.8 (3.8-5.6cm) LA (2D) 4.0 (1.6-4.0cm) LVEF(%, simp.) 63 % PWd 1.1 (0.7-1.1cm) Ao Root(2D) 3.0 (2.0-3.7cm) LA ESV INDEX (BP) 31.21 mL/m2 IVSs 1.3 cm LVOT diam 2.0 (1.8-2.4cm) LVDs 3.3 (2.5-4.0cm) PWs 1.7 cm Deformation Strain Apical 4 -16.7 % Apical 2 -17.9 % Apical 3 -19.7 % Global Strain -18.1 % M-Mode Dimensions EPSS 0.7 cm LA (MM) 3.6 (1.6-4.0cm) Ao Root(MM) 3.4 (2.0-3.7cm) Aortic Valve AoV Vmax 1.4 m/s Ao Peak GR 7.3 mmHg LVOT Vmax 1.0 m/s AoV VTI 0.3 m Ao Mean GR 4.2 mmHg LVOT VTI 0.20 m TOMASA (VMAX) 2.30 cm2 TOMASA (VTI) 2.3 cm2 Mitral Valve MV E Vmax 98.1 cm/s DECEL Time 125 ms MV A Vmax 57.5 cm/s P 1/2 T 73 ms E/A ratio 1.7 MVA (PHT) 3.0 cm2 TDI E/E' Medial 9.3 Medial E' Peak V 10.50 cm/s Pulmonary Valve PV Vmax 0.9 m/s PV VTI 0.20 m PV Mean GR 1.9 mmHg PV Peak GR 3.3 mmHg Tricuspid Valve TR Vmax 1.8 m/s RAP (EST) 3 mmHg RVSP 15.9 mmHg TR Peak GR 12.9 mmHg Left Ventricle The left ventricle is normal size. GLS -18.0%. There is normal LV segmental wall motion. There is normal left ventricular wall thickness. LVEF is 60-65%. 3D volume EF 63% The left ventricular diastolic function is normal. Right Ventricle The right ventricle is normal size. The right ventricular systolic function is normal. Atria The left atrium size is normal. The right atrium is mildly dilated. Aortic Valve The aortic valve is normal in structure. No aortic regurgitation is present. There is no aortic valvular stenosis. Mitral Valve The mitral valve is normal in structure. There is no mitral valve regurgitation noted. There is no mitral valve stenosis. Tricuspid Valve The tricuspid valve is normal in structure. There is trace of tricuspid valve regurgitation noted. Pulmonic Valve The pulmonary valve is normal in structure. There is no pulmonic valvular regurgitation. Great Vessels The aortic root is normal in size. The IVC is normal in size and collapses >50% with inspiration. Pericardium There is no pericardial effusion. Hyperreflectant pericardium. Other Information Quality : Adequate Conclusion LVEF is 60-65%. 3D volume EF 63% There is no pericardial effusion. Hyperreflectant pericardium. DICTATED BY: KIERA MARI MD DATE: 08/26/24 1026 ELECTRONICALLY SIGNED BY: KIERA MARI MD DATE: 08/26/24 3033 RUN DATE: 08/25/24 [facility] PAGE 1 RUN TIME: [address] [address] [employer] of [employer] [place] # [id number] Knife Changer: Magdy Ortega DO Specimen Report PATIENT: BRENTON PIERRE ACCT: [id number] LOC: [facility] U: [id number] AGE/SX: 34/M ROOM: 414 RE08/24/[address]: ALEXI OTOOLE MD : 1990 BED: 1 DIS: STATUS: ADM IN TLOC: SPEC: [id number] PAULIE: 08/25/24 STATUS: RES REQ: [id number] RECD: 08/25/[address]: KYLIE SANDERS DO SOURCE: URINE CC ENTR: 08/25/[address]: SELF,REFERRAL SPDC: ORDERED: URINE CULTURE Procedure Result Chavez Date-Time URINE CULTURE Preliminary 08/25/24-2021 REPORT URINE NO GROWTH 18-24 HRS Assessment/Plan: ASSESSMENT: Nephrotic syndrome, POA Anasarca, improved POA Acute kidney injury, GFR 90/elevated BUN, ruled out POA Hematuria, moderate, POA, per urinalysis Functional Constipation Rhabdomyolysis/ dehydration/ elevated total CK, POA Protein calorie malnutrition/hypoalbuminemia, POA Hypoproteinemia/ hyperproteinuria Elevated ESR Elevated carbon dioxide Anemia Admission date: 08/25/2024 Discharge date 08/26/2024 Activity: As tolerated Disposition: Home Home medications: None Discharge medications: None Follow up appointment: Follow up with the railroad signal and switch operator within a week of the discharge for the further management of the nephrotic syndrome. Follow up with the primary care provider within 2 weeks of the discharge for established care. Reinforced the importance of follow up appointments. Discharge Instructions: Low-sodium diet (<2g/day) Heart healthy diet and cholesterol-lowering foods. Visit the nearest emergency department or call 911 should you experience fluid overload, shortness of breath, chest pain or any life-threatening emergency symptoms. Time spent arranging discharge: 31-60 minutes ATTESTATION BY PHYSICIAN I have seen and examined the patient. I reviewed the documentation, medical de cision making, and treatment plan as noted by the resident provider above. I agree with the findings and plan of care. Alexi Otoole MD, MANALI MD Aug 26, 2024 15:58
[2024-08-26 16:00] VITALS: BP 146/77; PULSE 76; RESP 18; TEMP 98.5
--- NOTE | 2024-08-26 17:41 | HMCSR ---
APPROVED REPORT EXAM: Two-dimensional and M-mode echocardiogram with Doppler and color Doppler. INDICATION ICD: Anasarca, shortness of breath 2D Dimensions RVDd3.9 cmLVEF(%)59.5 (>50%)LVED Vol(simp.)107.0 mL IVSd1.0 (0.7-1.1cm)FS(%)32 %LVES Vol(simp.)40.0 mL LVDd4.8 (3.8-5.6cm)LA (2D)4.0 (1.6-4.0cm)LVEF(%, simp.)63 % PWd1.1 (0.7-1.1cm)Ao Root(2D)3.0 (2.0-3.7cm)LA ESV INDEX (BP)31.21 mL/m2 IVSs1.3 cmLVOT diam2.0 (1.8-2.4cm) LVDs3.3 (2.5-4.0cm) PWs1.7 cm Deformation Strain Apical 4-16.7 % Apical 2-17.9 % Apical 3-19.7 % Global Strain-18.1 % M-Mode Dimensions EPSS0.7 cm LA (MM)3.6 (1.6-4.0cm) Ao Root(MM)3.4 (2.0-3.7cm) Aortic Valve AoV Vmax1.4 m/Staci Peak GR7.3 mmHgLVOT Vmax1.0 m/s AoV VTI0.3 mAo Mean GR4.2 mmHgLVOT VTI0.20 m TOMASA (VMAX)2.30 cm2AVA (VTI) 2.3 cm2 Mitral Valve MV E Vmax98.1 cm/sDECEL Hscn907 ms MV A Vmax57.5 cm/sP 1/2 T73 ms E/A ratio1.7MVA (PHT)3.0 cm2 TDI E/E' Medial9.3 Medial E' Peak V10.50 cm/s Pulmonary Valve PV Vmax0.9 m/sPV VTI0.20 mPV Mean GR1.9 mmHg PV Peak GR3.3 mmHg Tricuspid Valve TR Vmax1.8 m/sRAP (EST) 3 [id number] mmHg TR Peak GR12.9 mmHg Left Ventricle The left ventricle is normal size. GLS -18.0%. There is normal LV segmental wall motion. There is nor mal left ventricular wall thickness. LVEF is 60-65%. 3D volume EF 63% The left ventricular diastolic function is normal. Right Ventricle The right ventricle is normal size. The right ventricular systolic function is normal. Atria The left atrium size is normal. The right atrium is mildly dilated. Aortic Valve The aortic valve is normal in structure. No aortic regurgitation is present. There is no aortic valvu lar stenosis. Mitral Valve The mitral valve is normal in structure. There is no mitral valve regurgitation noted. There is no mi tral valve stenosis. Tricuspid Valve The tricuspid valve is normal in structure. There is trace of tricuspid valve regurgitation noted. Pulmonic Valve The pulmonary valve is normal in structure. There is no pulmonic valvular regurgitation. Great Vessels The aortic root is normal in size. The IVC is normal in size and collapses >50% with inspiration. Pericardium There is no pericardial effusion. Hyperreflectant pericardium. Other Information Quality : Adequate Conclusion LVEF is 60-65%. 3D volume EF 63% There is no pericardial effusion. Hyperreflectant pericardium.
== END 2024-08-26 16:45 | disposition home or self-care (01) | DRG 558 ==
LOC: EDH 23:53 → EDHIP 23:54 → 4CH 08-25 03:22
PROVIDERS: ADMIT Internal Medicine; ATTEND Internal Medicine
DX: M62.82 Rhabdomyolysis (principal); N04.9 Nephrotic syndrome with unspecified morphologic changes; E46 Unspecified protein-calorie malnutrition; E86.0 Dehydration; E88.09 Other disorders of plasma-protein metabolism, not elsewhere classified; E77.8 Other disorders of glycoprotein metabolism; K59.04 Chronic idiopathic constipation; D64.9 Anemia, unspecified; I10 Essential (primary) hypertension; Z79.899 Other long term (current) drug therapy; Z68.25 Body mass index [BMI] 25.0-25.9, adult
CPT/HCPCS: 36415; 71045; 74176; 76376; 76770; 80048; 80061; 80076; 80305; 81001; 82043; 82550; 82570; 83735; 83880; 84100; 84156; 84484; 85025; 85027; 85378; 85610; 85651; 85730; 86038; 86140; 86160; 86162; 86215; 86235; 86705; 86803; 87086; 87340; 93306; 93356; 99285; G0378; J1650; J1938; P9046